=== PATIENT | female | born 1980 | race Caucasian/White ===

== ENCOUNTER 2021-01-23 | Emergency (ER) | payer SELFPAY ==
[~2021-01-23] VITALS: Ht 175.3 cm; Wt 74.8 kg
[2021-01-23 00:08] VITALS: BP_SYST 135
[2021-01-23] MEDS ORDERED: HYDR-3917 PO (01:29)
[2021-01-23] MEDS ORDERED: PRED20TA PO (01:29)
[2021-01-23] MEDS ORDERED: CLIN300C12 PO (01:29)
[2021-01-23] MEDS ORDERED: cefTRIAXone 1 GM in LIDOCAINE 1%, 20 ML MDV 2.1 ML IM ONE (01:30)
[2021-01-23] MEDS ORDERED: cefTRIAXone 1 GM VIAL ONE (01:44)
[2021-01-23 01:48] VITALS: BP_SYST 122
== END 2021-01-23 01:48 | disposition home or self-care (01) ==
LOC: SED
DX: K04.7 Periapical abscess without sinus (principal); Z88.6 Allergy status to analgesic agent; Z79.899 Other long term (current) drug therapy
CPT/HCPCS: 96372; 99283; J0696